=== PATIENT | female | born 1950 | race Two or more races ===

== ENCOUNTER 2021-09-05 15:21 | Emergency (ER) | payer OTHER, MEDICARE ==
[~2021-09-05] VITALS: Ht 152.4 cm; Wt 65.8 kg
[2021-09-05 15:57] VITALS: BP 154/60
[2021-09-05 16:05] LABS: Basophils # (auto) 0.1 10 ^3/uL (0-0.2); Basophils % (auto) 1.1 % (0.0-2.0); Eosinophils # (auto) 0.3 10 ^3/uL (0-0.8); Eosinophils % (auto) 5.6 % (0.0-7.0); Hematocrit 36.8 % (36.0-46.0); Hemoglobin 12.7 g/dL (12.2-16.2); Lymphocytes # (auto) 2.3 10 ^3/uL (0.4-5.4); Lymphocytes % (auto) 40.3 % (10.0-50.0); Mean Corpuscular Hemoglobin 32.5 pg (28.0-32.0); Mean Corpuscular Hgb Conc. 34.5 g/dL (32.0-36.0); Mean Corpuscular Volume 94.2 fL (80.0-100.0); Monocytes # (auto) 0.4 10 ^3/uL (0-1.3); Monocytes % (auto) 7.2 % (0.0-12.0); Neutrophils # (auto) 2.6 10 ^3/uL (1.6-8.6); Neutrophils % (auto) 45.8 % (37.0-80.0); Nucleated Red Blood Cells % 0.1 %; Red Cell Distribution Width 12.9 % (11.8-14.3); White Blood Cell 5.6 10^3/uL (4.4-10.8)
[2021-09-05 16:21] LABS: Albumin 3.4 g/dL (3.4-5.0); Calcium 9.4 mg/dL (8.5-10.1); Magnesium 3.3 mg/dL (1.6-2.6); Potassium 4.7 mmol/L (3.5-5.1)
[2021-09-05 16:28] LABS: BUN/Creatinine Ratio 18.6; Bilirubin, Total 0.2 mg/dL (0.2-1.0); Total Protein 7.5 g/dL (6.4-8.2)
[2021-09-05 16:33] LABS: Urine Bacteria NONE SEEN /hpf (None Seen); Urine Blood Negative /uL (Negative); Urine Specific Gravity 1.012 (1.001-1.035); Urine WBC 2 /hpf (0 - 5)
== END 2021-09-05 17:01 | disposition home or self-care (01) ==
LOC: ER 15:23
DX: I10 Essential (primary) hypertension (principal); E03.9 Hypothyroidism, unspecified
CPT/HCPCS: 36415; 80053; 81001; 83735; 84443; 84484; 85025; 93005

== ENCOUNTER 2023-04-04 12:28 | Emergency (ER) | payer OTHER ==
[~2023-04-04] VITALS: Ht 154.9 cm; Wt 63.9 kg
[2023-04-04 15:03] VITALS: BP 137/82; PULSE 57; RESP 16; TEMP 97.8; O2SAT 98
== END 2023-04-04 15:31 | disposition home or self-care (01) ==
LOC: ER 12:28
DX: S52.615A Nondisplaced fracture of left ulna styloid process, initial encounter for closed fracture (principal); S52.572A Other intraarticular fracture of lower end of left radius, initial encounter for closed fracture; W18.09XA Striking against other object with subsequent fall, initial encounter; Y93.89 Activity, other specified; Y92.096 Garden or yard of other non-institutional residence as the place of occurrence of the external cause; Y99.8 Other external cause status
CPT/HCPCS: 29125; 73110

== ENCOUNTER 2023-04-07 22:30 | Emergency (ER) | payer OTHER ==
[~2023-04-07] VITALS: Ht 154.9 cm; Wt 65.3 kg
[2023-04-07 23:20] LABS: Urine WBC None Seen /hpf (0 - 5)
[2023-04-07 23:42] LABS: Urine Bacteria NONE SEEN /hpf (None Seen); Urine Blood 1+ /uL (Negative); Urine Clarity Clear (Clear); Urine Color Colorless (Yellow); Urine Protein, UAD Negative (Negative); Urine Specific Gravity 1.004 (1.001-1.035); Urine Urobilinogen Normal (Negative)
[2023-04-07 23:58] LABS: Basophils # (auto) 0 10 ^3/uL (0-0.2); Basophils % (auto) 0.8 % (0.0-2.0); Eosinophils # (auto) 0.3 10 ^3/uL (0-0.8); Eosinophils % (auto) 5.3 % (0.0-7.0); Hematocrit 36.7 % (36.0-46.0); Hemoglobin 12.4 g/dL (12.2-16.2); Lymphocytes # (auto) 1.6 10 ^3/uL (0.4-5.4); Lymphocytes % (auto) 29.5 % (10.0-50.0); Mean Corpuscular Hemoglobin 33.3 pg (28.0-32.0); Mean Corpuscular Hgb Conc. 33.7 g/dL (32.0-36.0); Mean Corpuscular Volume 99.1 fL (80.0-100.0); Monocytes # (auto) 0.5 10 ^3/uL (0-1.3); Monocytes % (auto) 8.5 % (0.0-12.0); Neutrophils % (auto) 55.9 % (37.0-80.0); Nucleated Red Blood Cells % 0.1 %; Red Blood Cells 3.71 10^6/uL (4.0-5.20); Red Cell Distribution Width 13.8 % (11.8-14.3); White Blood Cell 5.4 10^3/uL (4.4-10.8)
[2023-04-08 00:23] LABS: Alanine Aminotransferase 23 U/L (7-40); Albumin 4.1 g/dL (3.2-4.8); Alkaline Phosphatase 224 U/L (46-116); Anion Gap 5.3 (5-15); Aspartate Aminotransferase 50 U/L (13-40); BUN/Creatinine Ratio 11.4 (10.0-20.0); Blood Urea Nitrogen 12 mg/dL (9-23); Calcium 9.3 mg/dL (8.7-10.4); Carbon Dioxide 23.7 mmol/L (20-30); Chloride 106 mmol/L (98-107); Glucose 111 mg/dL (74-106); Lipase 48 U/L (12-53); Potassium 4.2 mmol/L (3.5-5.1); Sodium 135 mmol/L (136-145)
[2023-04-08 00:24] LABS: Bilirubin, Total 0.7 mg/dL (0.2-1.0); Total Protein 7.3 g/dL (5.7-8.2)
[2023-04-08] MEDS ORDERED: MORPHINE SULFATE 4 MG/ML SYR/VIAL IM ONE (04:30)
[2023-04-08] MEDS ORDERED: ONDANSETRON ODT 4 MG TAB PO ONE (04:30)
[2023-04-08] MEDS ORDERED: KETOROLAC TROMETH 30 MG/ML 1ML VIAL IV ONE (05:30)
[2023-04-08] MEDS ORDERED: IBUP1TAB5 PO (06:02)
[2023-04-08 06:10] VITALS: BP 153/71; PULSE 57; RESP 16; O2SAT 99
== END 2023-04-08 06:30 | disposition home or self-care (01) ==
LOC: ER 22:32
DX: S52.92XA Unspecified fracture of left forearm, initial encounter for closed fracture (principal); M54.50 Low back pain, unspecified; R10.84 Generalized abdominal pain; W18.39XA Other fall on same level, initial encounter; Y93.89 Activity, other specified; Y92.096 Garden or yard of other non-institutional residence as the place of occurrence of the external cause; Y99.8 Other external cause status
CPT/HCPCS: 36415; 74176; 80053; 81001; 83605; 83690; 84484; 85025; 96374; 99285; J1885

== ENCOUNTER 2025-03-13 09:49 | Inpatient (IN) | payer OTHER ==
[~2025-03-13] VITALS: Ht 154.9 cm; Wt 67.8 kg
[~2025-03-13 09:49] MED LIST: IBUP1TAB5 PO
--- NOTE | 2025-03-13 10:46 | DVH ---
CHEST RADIOGRAPH Indication: chest pain Technique: Single frontal view of the chest was obtained COMPARISON: None FINDINGS: Lines and Tubes: None Lungs: Clear Pleura: No effusion. No pneumothorax. Cardiomediastinal contours: Unremarkable Bones: Unremarkable IMPRESSION: No acute disease.
[2025-03-13 10:56] LABS: Urine Protein, UAD Negative (Negative)
[2025-03-13 11:01] LABS: Alanine Aminotransferase 27 U/L (7-40); Albumin 4.0 g/dL (3.2-4.8); Anion Gap 8 (5-15); BUN/Creatinine Ratio 15.6 (10.0-20.0); Blood Urea Nitrogen 14 mg/dL (9-23); Calcium 9.5 mg/dL (8.7-10.4); Carbon Dioxide 22 mmol/L (20-31); Glucose 100 mg/dL (74-106); Lipase 45 U/L (12-53); Potassium 4.4 mmol/L (3.5-5.1); Sodium 140 mmol/L (136-145); Total Protein 7.2 g/dL (5.7-8.2)
[2025-03-13 11:02] LABS: Alkaline Phosphatase 149 U/L (46-116); Bilirubin, Total 0.7 mg/dL (0.2-1.0); Chloride 110 mmol/L (98-107)
[2025-03-13 11:58] LABS: Hematocrit 38.6 % (36.0-46.0); Hemoglobin 12.9 g/dL (12.2-16.2); Mean Corpuscular Hemoglobin 32.3 pg (28.0-32.0); Mean Corpuscular Volume 96.5 fL (80.0-100.0); Nucleated Red Blood Cells % 0.1 %
--- NOTE | 2025-03-13 12:37 | ED.PDOC ---
History of Present Illness HPI Comments 74-year-old female with PMHx HTN presents with a chief complaint of chest pain and SOB. Patient states that her pain is localized to her left chest, nonradiating, nonexertional, and has no alleviating factors. Patient also reports that she is SOB. Patient mentions that she took Tylenol, but that it did not alleviate her pain. Chief Complaint: Shortness of Breath Time Seen by MD: 10:31 Primary Care Provider: CAIT Leger Notes: Medications, Allergies Allergies: Coded Allergies: NO KNOWN ALLERGIES (Unverified , 10/16/12) Home Meds Active Scripts Ibuprofen Micronized (Ibuprofen) 600 Mg Tab, 600 MG PO TID PRN for 10 Days, #30 TAB Prov:MELOYOUNG Stanley DO 04/08/23 Information Source: Patient Mode of Arrival: Ambulatory Severity: Moderate Timing: Days Duration: Since onset Prehospital treatment: None Past Medical History PAST MEDICAL HISTORY: Thyroid Surgical History: CORN HUSK BALER History: No Pertinent CORN HUSK BALER History Family History Family History: Reviewed,noncontributory to illness Social History Smoker: Non-Smoker Alcohol: Denies ETOH Use Drugs: Denies Drug Use Lives In: Home Constitutional: denies: chills, diaphoresis, fatigue, fever, malaise, sweats, weakness, others EENTM: denies: blurred vision, double vision, ear bleeding, ear discharge, ear drainage, ear pain, ear ringing, eye pain, eye redness, hearing loss, mouth pain, mouth swelling, nasal discharge, nose bleeding, nose congestion, nose pain, photophobia, tearing, throat pain, throat swelling, voice changes, others Respiratory: reports: shortness of breath; denies: cough, hemoptysis, orthopnea, SOB at rest, SOB with excertion, stridor, wheezing, others Cardiovascular: reports: chest pain; denies: dizzy spells, diaphoresis, Dyspnea on exertion, edema, irregular heart beat, left arm pain, lightheadedness, palpitations, PND, syncope, others Gastrointestinal: denies: abdomen distended, abdominal pain, blood streaked bowels, constipated, diarrhea, dysphagia, difficulty swallowing, hematemesis, melena, nausea, poor appetite, poor fluid intake, rectal bleeding, rectal pain, vomiting, others Genitourinary: denies: abnormal vagina bleeding, burning, dyspareunia, dysuria, flank pain, frequency, hematuria, incontinence, pain, , vagina discharge, urgency, others Neurological: denies: dizziness, fainting, headache, left sided numbness, left sided weakness, numbness, paresthesia, pre-existing deficit, right sided numbness, right sided weakness, seizure, speech problems, tingling, tremors, weakness, others Musculoskeletal: denies: back pain, gout, joint pain, joint swelling, muscle pain, muscle stiffness, neck pain, others Integumetry: denies: bruises, change in color, change in hair/nails, dryness, laceration, lesions, lumps, rash, wounds, others Allergic/Immunocompromised: denies: Difficulty Healing, Frequent Infections, Hives, Itching, others Hematologic/Lymphatic: denies: anemia, blood clots, easy bleeding, easy bruising, swollen glands, others Endocrine: denies: excessive hunger, excessive sweating, excessive thirst, excessive urination, flushing, intolerance to cold, intolerance to heat, unexp lained weight gain, unexplained weight loss, others Psychiatric: denies: anxiety, bipolar disorder, depression, hopeless, panic disorder, schizophrenia, sleepless, suicidal, others All Other Systems: Reviewed and Negative Physical Exam General Appearance: No Apparent Distress, Normal HEENT: Normal ENT Inspection, Pharynx Normal, TMs Normal Neck: Full Range of Motion, Non-Tender, Normal, Normal Inspection Respiratory: Chest Non-Tender, Lungs Clear, No Accessory Muscle Use, No Respiratory Distress, Normal Breath Sounds Cardiovascular: No Edema, No JVD, No Murmur, No Gallop, Normal Peripheral Pulse s, Regular Rate/Rhythm Breast Exam: Deferred Gastrointestinal: No Organomegaly, Non Tender, No Pulsatile Mass, Normal Bowel Sounds, Soft Genitalia: Deferred Pelvic: Deferred Rectal: Deferred Extremities: No calf tenderness, Normal capillary refill, Normal inspection, Normal range of motion, Non-tender, No pedal edema Musculoskeletal : Apperance: Normal Neurologic: Alert, social economist II-XII nml as Tested, No Motor Deficits, Normal Affect, Normal Mood, No Sensory Deficits Cerebellar Function: Normal Reflexes: Normal Skin: Dry, Normal Color, Warm Lymphatic: No Adenopathy Was a procedure done? Was a procedure done?: No Differential Dx Considerations may include: ACS, CVA, viral syndrome, pneumonia X-Ray, Labs, Meds, VS Vital Signs Date Time Temp Pulse Resp B/P (MAP) Pulse Ox O2 Delivery O2 Flow Rate FiO2 03/13/25 10:06 58 03/13/25 09:56 97.9 61 17 169/82 99 97.9 Lab Test 03/13/25 11:31 03/13/25 10:30 03/13/25 10:16 Range/Units White Blood Count 4.1 L 4.4-10.8 10^3/uL Red Blood Count 4.00 4.0-5.20 10^6/uL Hemoglobin 12.9 12.2-16.2 g/dL Hematocrit 38.6 36.0-46.0 % Mean Corpuscular Volume 96.5 80.0-100.0 fL Mean Corpuscular Hemoglobin 32.3 H 28.0-32.0 pg Mean Corpuscular Hemoglobin Concent 33.4 32.0-36.0 g/dL Red Cell Distribution Width 13.2 11.8-14.3 % Platelet Count 197 140-450 10^3/uL Mean Platelet Volume 8.2 6.9-10.8 fL Neutrophils (%) (Auto) 46.3 37.0-80.0 % Lymphocytes (%) (Auto) 40.9 10.0-50.0 % Monocytes (%) (Auto) 8.5 0.0-12.0 % Eosinophils (%) (Auto) 3.6 0.0-7.0 % Basophils (%) (Auto) 0.7 0.0-2.0 % Neutrophils # (Auto) 1.9 1.6-8.6 10 ^3/uL Lymphocytes # (Auto) 1.7 0.4-5.4 10 ^3/uL Monocytes # (Auto) 0.3 0-1.3 10 ^3/uL Eosinophils # (Auto) 0.1 0-0.8 10 ^3/uL Basophils # (Auto) 0 0-0.2 10 ^3/uL Nucleated Red Blood Cells 0.1 % Troponin I High Sensitivity 3 L < 3 L </=34 ng/L Sodium Level 140 136-145 mmol/L Potassium Level 4.4 3.5-5.1 mmol/L Chloride Level 110 H 98-107 mmol/L Carbon Dioxide Level 22 20-31 mmol/L Anion Gap 8 5-15 Blood Urea Nitrogen 14 9-23 mg/dL Creatinine 0.90 0.550-1.02 mg/dL Glomerular Filtration Rate Calc 68 >90 mL/min BUN/Creatinine Ratio 15.6 10.0-20.0 Serum Glucose 100 74-106 mg/dL Calcium Level 9.5 8.7-10.4 mg/dL Total Bilirubin 0.7 0.2-1.0 mg/dL Aspartate Amino Transferase (AST) 57 H 13-40 U/L Alanine Aminotransferase (ALT) 27 7-40 U/L Alkaline Phosphatase 149 H 46-116 U/L Total Protein 7.2 5.7-8.2 g/dL Albumin 4.0 3.2-4.8 g/dL Lipase 45 12-53 U/L Urine Color Light-yellow Yellow Urine Clarity Clear Clear Urine pH 7.0 5.0-9.0 Urine Specific [place] 1.011 1.001-1.035 Urine Protein Negative Negative Urine Ketones Negative Negative Urine Blood Negative Negative /uL Urine Nitrite Negative Negative Urine Bilirubin Negative Negative Urine Urobilinogen Normal Negative mg/dL Urine Leukocyte Esterase Negative Negative /uL Urine RBC 1 0 - 4 /hpf Urine Microscopic WBC < 1 0-5 /HPF Urine Squamous Epithelial Cells Few <5 /hpf Urine Bacteria None seen None Seen /hpf Urine Glucose Normal Normal mg/dL Time of 1ST Reevaluation: 11:01 Reevaluation 1ST: Unchanged Patient Education/Counseling: Diagnosis, Treatment Family Education/Counseling: No Family Present SEPSIS Sepsis Screen Date sepsis recognized/suspect: Mar 13, 2025 Time Sepsis recognized/suspect: 954 Recent Procedure: No On Antibiotic Therapy: No Respiratory Rate >20: No Heart Rate >90: No Temp<36 C (96.8 F) or >38.3 C: No SBP <90 or MAP <65 mmHG: No New Acute Mental Status Change: No Is the patient on CPAP, BIPAP,: No Physician Orders Electrocardigram (03/13/25 10:02) Electrocardigram (03/13/25 11:02) Chest Portable (03/13/25 10:16) Admit (03/13/25 18:31) Code Status (03/13/25 18:31) Vital Signs .PER UNIT PROTOCOL (03/13/25 18:31) Review Orders With Adm.Md (03/13/25 18:31) Encourage Activity As Tolerate (03/13/25 18:31) Sodium Chloride Lock (Saline Lock Ns) (03/13/25 22:00) Docusate Sodium Capsule (Colace Capsule) (03/13/25 18:45) Acetaminophen Tablet (Tylenol Tablet) (03/13/25 18:45) Notify Md Of Changes From Base (03/13/25 18:31) Advance Directive (03/13/25 18:31) Patient Condition (03/13/25:) Allergies (03/13/25 18:) Hydrocodone-Acet 5/325mg Tab ([place] 32 (03/13/25 18:45) Ondansetron Hcl (Zofran) (03/13/25 18:45) Enoxaparin Sodium (Lovenox) (03/14/25 10:00) Nitroglycerin Sublingual (Ntrostat Subli (03/13/25 18:45) Morphine Sulfate Injection (03/13/25 18:45) Stat Ekg For Chest Pain (03/13/25:31) Notify Md Of Changes From Base (03/13/25 18:31) Supervisor Motor Vehicle Assembly For 24 Hours (03/13/25 18:31) Emergency Dysrhythmia Protocol (03/13/25:31) Rhythm Strips Once Every Shift (03/13/25:31) Oxygen By Nasal Cannula (03/13/25:31) Ketorolac Injection (Toradol Injection) (03/13/25 18:45) Echo 2d Mode Cardiac Dop (03/13/25:31) Cardiac Diet-2gna,Lofat,Lochol (03/14/25 Breakfast) Complete Blood Count (03/14/25 05:00) Complete Blood Count (03/15/25 05:00) Complete Blood Count (03/16/25 05:00) Complete Blood Count (03/17/25 05:00) Complete Blood Count (03/18/25 05:00) Comprehensive Metabolic Panel (03/14/25 05:00) Comprehensive Metabolic Panel (03/15/25 05:00) Comprehensive Metabolic Panel (03/16/25 05:00) Comprehensive Metabolic Panel (03/17/25 05:00) Comprehensive Metabolic Panel (03/18/25 05:00) Vital Signs Date Time Temp Pulse Resp B/P (MAP) Pulse Ox O2 Delivery O2 Flow Rate FiO2 03/13/25 10:06 58 03/13/25 09:56 97.9 61 17 169/82 99 97.9 Laboratory Tests Test 03/13/25 11:31 White Blood Count 4.1 10^3/uL (4.4-10.8) L Departure 1 Departure Time of Disposition: 18:45 (Patient presented with chest pain that was concerning for possible STEMI, ACS, PE, Pneumonia, Muscle Strain, COPD, Dissection. Data: 1. I ordered and reviewed the result of at least 3 labs including a CBC, BMP, and Troponin. 2. I independently interpreted the following tests: EKG which shows has a arrhythmia and Chest X-ray which shows chest.Risk:This patient has a high risk of morbidity due to further diagnostic testing or treatment and may suffer from an acute cardiac or respiratory disorder. Workup reveals concern for ACS and patient should be admitted for further workup and possible expert consultation. ) Impression: Primary Impression: Chest pain Qualified Codes: R07.9 - Chest pain, unspecified Disposition: ADMITTED INPATIENT Admit to: Med Surg Condition: Serious Critical Care Note Critical Care Time?: Yes Critical care comment: Acute chest pain Authorized and Performed by: Velia Glez MD Total critical care time: Approximately 38 minutes Due to a high probability of clinically significant, life threatening deterioration, the patient required my highest level of preparedness to intervene emergently and I personally spent this critical care time directly and personally managing the patient. This critical care time included obtaining a history; examining the patient; pulse oximetry; ordering and review of studies; arranging urgent treatment with development of a management plan; evaluation of patient's response to treatment; frequent reassessment; and, discussions with other providers. This critical care time was performed to assess and manage the high probability of imminent, life-threatening deterioration that could result in multi-organ failure. It was exclusive of separately billable procedures and treating other patients and teaching time. Please see my other sections and the rest of the note for further information on patient assessment and treatment. Stability Stability form required: No Heart Score Heart Score: Heart Score Response (Comments) Value History N/A 0 EKG N/A 0 Age N/A 0 Risk Factors N/A 0 Troponin N/A 0 Total 0 I personally scribed for VELIA GLEZ MD ([email or web address]) on 03/13/25 at 12:37. Electronically submitted by Galileo Hinkle ([email or web address]). VELIA GLEZ MD Mar 13, 2025 12:37
--- NOTE | 2025-03-13 18:38 | DVHHP2 ---
Admitting Diagnosis: Chest pain History of Present Illness 74-year-old female with PMHx HTN presents with a chief complaint of chest pain and SOB. Patient states that her pain is localized to her left chest, nonra diating, nonexertional, and has no alleviating factors. Patient also reports that she is SOB. Patient mentions that she took Tylenol, but that it did not alleviate her pain. PAST MEDICAL HISTORY: Thyroid Surgical History: EDITING COMPUTER PUBLISHER History: No Pertinent EDITING COMPUTER PUBLISHER History Family History Family History: Reviewed,noncontributory to illness Social History Smoker: Non-Smoker Alcohol: Denies ETOH Use Drugs: Denies Drug Use Lives In: Home Allergies: Coded Allergies: NO KNOWN ALLERGIES (Unverified , 10/16/12) Home Meds Active Scripts Ibuprofen Micronized (Ibuprofen) 600 Mg Tab, 600 MG PO TID PRN for 10 Days, #30 TAB Prov:YOUNG MELO DO 04/08/23 Current Medications Current Medications Medications (Trade) Dose Ordered Sig/Kandi Route PRN Reason Start Time Stop Time Status Last Admin Sodium Chloride (Saline Lock Ns) 10 ml Q8HR IV 03/13/25 22:00 UNV Docusate Sodium (Colace Capsule) 100 mg BIDPRN PRN PO FOR CONSTIPATION 03/13/25 18:45 UNV Acetaminophen (Tylenol Tablet) 650 mg Q6HP PRN PO PAIN SCALE 1-3 OR TEMP>100.4 03/13/25 18:45 UNV Acetaminophen/ Hydrocodone Bitart ([place] 5/325MG Tab) 1 tab Q4HP PRN PO MODERATE PAIN (4-6 PAIN SCALE) 03/13/25 18:45 UNV Ondansetron HCl (Zofran) 4 mg Q4HP PRN IV NAUSEA / VOMITING 03/13/25 18:45 UNV Enoxaparin Sodium (Lovenox) 40 mg DAILY SC 03/14/25 10:00 UNV Nitroglycerin (Ntrostat Sublingual) 0.4 mg Q5MINP PRN SL FOR CHEST PAIN 03/13/25 18:45 UNV Morphine Sulfate 2 mg Q30M PRN IV FOR CHEST PAIN 03/13/25 18:45 UNV Ketorolac Tromethamine (Toradol Injection) 15 mg Q8H PRN IV moderate pain 03/13/25 18:45 03/18/25 18:44 UNV Vital Signs Vital Signs Date Time Temp Pulse Resp B/P (MAP) Pulse Ox O2 Delivery O2 Flow Rate FiO2 03/13/25 10:06 58 03/13/25 09:56 97.9 17 169/82 99 97.9 Physical Exam Generally-74 years old woman, well nourished well developed. No apparent dist ress HEENT-atraumatic, normocephalic Heart-regular rate and rhythm Lungs clear to auscultate bilaterally Abdomen soft nontender nondistended Musculoskeletal-no edema No cyanosis Neuro-AO x3, no focal deficits SEPSIS Sepsis Screen Date sepsis recognized/suspect: Mar 13, 2025 Time Sepsis recognized/suspect: 954 Recent Procedure: No On Antibiotic Therapy: No Respiratory Rate >20: No Heart Rate >90: No Temp<36 C (96.8 F) or >38.3 C: No SBP <90 or MAP <65 mmHG: No New Acute Mental Status Change: No Is the patient on CPAP, BIPAP,: No Physician Orders Electrocardigram (03/13/25 10:02) Electrocardigram (03/13/25 11:02) Chest Portable (03/13/25 10:16) Admit (03/13/25 18:31) Code Status (03/13/25 18:31) Vital Signs .PER UNIT PROTOCOL (03/13/25 18:31) Review Orders With Adm.Md (03/13/25 18:31) Encourage Activity As Tolerate (03/13/25 18:31) Sodium Chloride Lock (Saline Lock Ns) (03/13/25 22:00) Docusate Sodium Capsule (Colace Capsule) (03/13/25 18:45) Acetaminophen Tablet (Tylenol Tablet) (03/13/25 18:45) Notify Md Of Changes From Base (03/13/25 18:31) Advance Directive (03/13/25 18:31) Patient Condition (03/13/25 18:31) Allergies (03/13/25 18:31) Hydrocodone-Acet 5/325mg Tab ([place] 5/32 (03/13/25 18:45) Ondansetron Hcl (Zofran) (03/13/25 18:45) Enoxaparin Sodium (Lovenox) (03/14/25 10:00) Nitroglycerin Sublingual (Ntrostat Subli (03/13/25 18:45) Morphine Sulfate Injection (03/13/25 18:45) Stat Ekg For Chest Pain (03/13/25 18:31) Notify Of Changes From Base (03/13/25 18:31) Accounts Specialist For 24 Hours (03/13/25 18:31) Emergency Dysrhythmia Protocol (03/13/25 18:31) Rhythm Strips Once Every Shift (03/13/25 18:31) Oxygen By Nasal Cannula (03/13/25 18:31) Ketorolac Injection (Toradol Injection) (03/13/25 18:45) Echo 2d Mode Cardiac Dop (03/13/25 18:31) Cardiac Diet-2gna,Lofat,Lochol (03/14/25 Breakfast) Vital Signs Date Time Temp Pulse Resp B/P (MAP) Pulse Ox O2 Delivery O2 Flow Rate FiO2 03/13/25 10:06 58 03/13/25 09:56 97.9 61 17 169/82 99 97.9 Laboratory Tests Test 03/13/25 11:31 White Blood Count 4.1 10^3/uL (4.4-10.8) L Results Labs Test 03/13/25 11:31 03/13/25 10:30 03/13/25 10:16 Range/Units White Blood Count 4.1 L 4.4-10.8 10^3/uL Red Blood Count 4.00 4.0-5.20 10^6/uL Hemoglobin 12.9 12.2-16.2 g/dL Hematocrit 38.6 36.0-46.0 % Mean Corpuscular Volume 96.5 80.0-100.0 fL Mean Corpuscular Hemoglobin 32.3 H 28.0-32.0 pg Mean Corpuscular Hemoglobin Concent 33.4 32.0-36.0 g/dL Red Cell Distribution Width 13.2 11.8-14.3 % Platelet Count 197 140-450 10^3/uL Mean Platelet Volume 8.2 6.9-10.8 fL Neutrophils (%) (Auto) 46.3 37.0-80.0 % Lymphocytes (%) (Auto) 40.9 10.0-50.0 % Monocytes (%) (Auto) 8.5 0.0-12.0 % Eosinophils (%) (Auto) 3.6 0.0-7.0 % Basophils (%) (Auto) 0.7 0.0-2.0 % Neutrophils # (Auto) 1.9 1.6-8.6 10 ^3/uL Lymphocytes # (Auto) 1.7 0.4-5.4 10 ^3/uL Monocytes # (Auto) 0.3 0-1.3 10 ^3/uL Eosinophils # (Auto) 0.1 0-0.8 10 ^3/uL Basophils # (Auto) 0 0-0.2 10 ^3/uL Nucleated Red Blood Cells 0.1 % Troponin I High Sensitivity 3 L </=34 ng/L Sodium Level 140 136-145 mmol/L Potassium Level 4.4 3.5-5.1 mmol/L Chloride Level 110 H 98-107 mmol/L Carbon Dioxide Level 22 20-31 mmol/L Anion Gap 8 5-15 Blood Urea Nitrogen 14 9-23 mg/dL Creatinine 0.90 0.550-1.02 mg/dL Glomerular Filtration Rate Calc 68 >90 mL/min BUN/Creatinine Ratio 15.6 10.0-20.0 Serum Glucose 100 74-106 mg/dL Calcium Level 9.5 8.7-10.4 mg/dL Total Bilirubin 0.7 0.2-1.0 mg/dL Aspartate Amino Transferase (AST) 57 H 13-40 U/L Alanine Aminotransferase (ALT) 27 7-40 U/L Alkaline Phosphatase 149 H 46-116 U/L Total Protein 7.2 5.7-8.2 g/dL Albumin 4.0 3.2-4.8 g/dL Lipase 45 12-53 U/L Urine Color Light-yellow Yellow Urine Clarity Clear Clear Urine pH 7.0 5.0-9.0 Urine Specific [place] 1.011 1.001-1.035 Urine Protein Negative Negative Urine Ketones Negative Negative Urine Blood Negative Negative /uL Urine Nitrite Negative Negative Urine Bilirubin Negative Negative Urine Urobilinogen Normal Negative mg/dL Urine Leukocyte Esterase Negative Negative /uL Urine RBC 1 0 - 4 /hpf Urine Microscopic WBC < 1 0-5 /HPF Urine Squamous Epithelial Cells Few <5 /hpf Urine Bacteria None seen None Seen /hpf Urine Glucose Normal Normal mg/dL Primary Diagnosis Chest pain rule out ACS Plan Chest pain intermittent, left side rib region worsened when cough To rule out p.r.n. Tylenol and morphine for pain control Check echo of the heart to rule out abnormal regional wall motion Troponin negative Diet Full code Lovenox for DVT prophylaxis No GI prophylaxis needed Plan discussed with: Patient Date of Service: Mar 13, 2025 Billing Provider: ANJEL AGUILAR MD Common Visit Codes: [id number] INP/OBS CARE (MOD) ANJEL AGUILAR MD Mar 13, 2025 18:38
[2025-03-13] MEDS ORDERED: NITROGLYCERIN 0.4 MG SL TAB SL PRN (18:45)
[2025-03-13] MEDS ORDERED: HYDROcodone-ACET 5/325MG TAB PO PRN (18:45)
[2025-03-13] MEDS ORDERED: DOCUSATE SOD 100 MG CAP PO PRN (18:45)
[2025-03-13] MEDS: MORPHINE SULFATE INJ 2 MG/ml SYRG IV PRN (19:33)
[2025-03-13] MEDS: ONDANSETRON HCL 4 MG/2 ML VIAL IV PRN (19:33)
[2025-03-13 20:52] VITALS: PULSE 58; RESP 14; O2SAT 96
[2025-03-13] MEDS: SODIUM CHLOR 0.9% PF (SALINE LOCK) 10ML VIAL/SYR IV SCH (22:13)
[2025-03-13] MEDS: hydrALAZINE HCL 20 MG/ML VL IV PRN (22:20)
[2025-03-13 23:12] VITALS: BP 142/75; PULSE 56; RESP 19; TEMP 97; O2SAT 98
[2025-03-13] MEDS: KETOROLAC TROMETH 30 MG/ML 1ML VIAL IV PRN (23:37)
[2025-03-14] VITALS (8 sets, daily range): BP systolic 115–152; BP diastolic 70–88; PULSE 52–63; RESP 16–98; TEMP 96.2–98.7; O2SAT 96–99
[2025-03-14] MEDS: ACETAMINOPHEN 325 MG TAB PO PRN (04:18)
[2025-03-14 07:44] LABS: Hematocrit 36.0 % (36.0-46.0); Hemoglobin 12.2 g/dL (12.2-16.2); Mean Corpuscular Hemoglobin 32.4 pg (28.0-32.0); Mean Corpuscular Volume 96.1 fL (80.0-100.0); Nucleated Red Blood Cells % 0.2 %
[2025-03-14 08:01] LABS: Alanine Aminotransferase 23 U/L (7-40); Albumin 3.6 g/dL (3.2-4.8); Anion Gap 10 (5-15); BUN/Creatinine Ratio 19.4 (10.0-20.0); Bilirubin, Total 0.6 mg/dL (0.2-1.0); Blood Urea Nitrogen 20 mg/dL (9-23); Calcium 9.8 mg/dL (8.7-10.4); Carbon Dioxide 22 mmol/L (20-31); Glucose 91 mg/dL (74-106); Potassium 4.4 mmol/L (3.5-5.1); Sodium 143 mmol/L (136-145); Total Protein 6.3 g/dL (5.7-8.2)
[2025-03-14 08:05] LABS: Alkaline Phosphatase 127 U/L (46-116); Chloride 111 mmol/L (98-107)
[2025-03-14] MEDS: ENOXAPARIN SOD 40 MG/0.4 ML SYRINGE SC SCH (09:43)
--- NOTE | 2025-03-14 11:27 | DVHPN2 ---
Subjective Continues to complain of chest pain Reviewed: Care Plan, H&P, Labs, Medications, Previous Orders, Radiology Changes from previous H/P or p: No Changes Objective Vitals Vital Signs Date Time Temp Pulse Resp B/P (MAP) Pulse Ox O2 Delivery O2 Flow Rate FiO2 03/14/25 08:30 97.5 52 16 144/78 (100) 99 97.5 03/14/25 08:11 Room Air* 0 21 Intake/Output Intake and Output 03/14/25 07:00 Intake Total 50 ml Balance 50 ml Intake Oral 50 ml # Voids 1 General Appearance: Alert, Oriented X3, Cooperative, No acute distress HEENT: Atraumatic Lungs: Clear to auscultation, Normal air movement Cardiovascular: Regular rate, Normal S1, Normal S2, No murmurs Neuro: Normal speech, Cranial nerves 3-12 NL Psych/Mental Status: Mental status NL, Mood NL Medications Current Medications Medications Dose Ordered Sig/Kandi Route Start Time Stop Time Status Last Admin Dose Admin Sodium Chloride 10 ml Q8HR IV 03/13/25 22:00 03/14/25 08:11 10 ML Docusate Sodium 100 mg BIDPRN PRN PO 03/13/25 18:45 Acetaminophen 650 mg Q6HP PRN PO 03/13/25 18:45 03/14/25 04:18 650 MG Acetaminophen/ Hydrocodone Bitart 1 tab Q4HP PRN PO 03/13/25 18:45 Hold Ondansetron HCl 4 mg Q4HP PRN IV 03/13/25 18:45 Enoxaparin Sodium 40 mg DAILY SC 03/14/25 10:00 03/14/25 09:43 40 MG Nitroglycerin 0.4 mg Q5MINP PRN SL 03/13/25 18:45 Morphine Sulfate 2 mg Q30M PRN IV 03/13/25 18:45 Ketorolac Tromethamine 15 mg Q8H PRN IV 03/13/25 18:45 03/18/25 18:44 03/13/25 23:37 15 MG Hydralazine HCl 10 mg Q6HP PRN IV 03/13/25 22:00 03/13/25 22:20 10 MG Laboratory Results Laboratory Tests 03/14/25 06:30 Chemistry Test 03/14/25 06:30 Albumin 3.6 g/dL (3.2-4.8) Calcium Level 9.8 mg/dL (8.7-10.4) Total Protein 6.3 g/dL (5.7-8.2) LFT Test 03/14/25 06:30 Alanine Aminotransferase (ALT) 23 U/L (7-40) Alkaline Phosphatase 127 U/L (46-116) H Aspartate Amino Transferase (AST) 49 U/L (13-40) H Total Bilirubin 0.6 mg/dL (0.2-1.0) Urinalysis Test 03/13/25 10:16 Urine Color Light-yellow (Yellow) Urine Clarity Clear (Clear) Urine pH 7.0 (5.0-9.0) Urine Specific [place] 1.011 (1.001-1.035) Urine Protein Negative (Negative) Urine Ketones Negative (Negative) Urine Blood Negative /uL (Negative) Urine Nitrite Negative (Negative) Urine Bilirubin Negative (Negative) Urine Urobilinogen Normal mg/dL (Negative) Urine Leukocyte Esterase Negative /uL (Negative) Urine RBC 1 /hpf (0 - 4) Urine Microscopic WBC < 1 /HPF (0-5) Urine Squamous Epithelial Cells Few /hpf (<5) Urine Bacteria None seen /hpf (None Seen) Urine Glucose Normal mg/dL (Normal) Labs and/or images reviewed: Labs reviewed by me, Image(s) reviewed by me Assessment/Plan Assessment/Plan A 74-year-old female patient; with past medical history of autoimmune hepatitis and hypothyroidism; who presented to emergency department with chest pain. # Acute chest pain; unclear etiology; negative troponin; no ischemic changes on EKG # Autoimmune hepatitis with elevated LFTs # Hypertensive heart disease # Hypothyroidism # Overweight Counseled the patient on the importance of adopting healthy lifestyle with diet and exercise in order to lose weight Continue antihypertensive medication/s and adjust according to blood pressure readings Avoid hepatotoxic agents; will hold azathioprine as inpatient Reviewed lab work and chest x-ray Continue home levothyroxine Consulted cardiology Continue monitoring Goals of care discussed with the patient for 20 minutes; full code Late Entry. This medical document was created using an electronic medical record system with computerized dictation system. Although this document has been carefully reviewed, there might still be some phonetic and typographical errors. These areas are purely typographical due to imperfections of the software programs, and do not reflect any compromise in the patient's medical care. Plan discussed with: Patient, Son, Other (Nurse) Date of Service: Mar 14, 2025 Billing Provider: KASI BARRIGA MD Common Visit Codes: [id number] INP/OBS CARE(HIGH) Secondary Visit Codes: [id number] CARE PLAN 30 MINUTES (20 minutes) KASI BARRIGA MD Mar 14, 2025 11:27
--- NOTE | 2025-03-14 15:25 | DVHINCON2 ---
Date Seen: Mar 14, 2025 Referring Physician MD Michi Reason for Consultation Chest pain History of Present Illness This is a 74-year-old female patient who presents to emergency room with chief complaint of back pain. The patient reports that she has been experiencing back pain for approximately three days. She describes it as sharp and located at her mid upper back region with radiation under her left scapula. She reports taking ibuprofen, which has helped. Cardiology has been consulted at this time for "chest pain". After speaking with the patient extensively, the patient denies any chest pain and states her pain is directly located in her back. Initial t welve lead electrocardiogram reveals sinus bradycardia without any significant ST segment changes. Troponin levels have been negative. Significant past medical history includes hypertension, dyslipidemia, nonalcoholic liver cirrhosis, and obesity. Past Medical History Past medical history reviewed. No other significant than mentioned above. Past Surgical History Denies any previous surgical history Family History: Diabetes mellitus G8 FATHER Hypertension G8 MOTHER Family History Family history reviewed. Social History Denies the use of tobacco, alcohol or illicit drugs. Allergies: Coded Allergies: NO KNOWN ALLERGIES (Unverified , 10/16/12) Home Meds Active Scripts Ibuprofen Micronized (Ibuprofen) 600 Mg Tab, 600 MG PO TID PRN for 10 Days, #30 TAB Prov:YOUNG MELO DO 04/08/23 Home Meds Home medications reviewed. Current Medications Current Medications Medications (Trade) Dose Ordered Sig/Kandi Route PRN Reason Start Time Stop Time Status Last Admin Sodium Chloride (Saline Lock Ns) 10 ml Q8HR IV 03/13/25 22:00 03/14/25 15:01 Docusate Sodium (Colace Capsule) 100 mg BIDPRN PRN PO FOR CONSTIPATION 03/13/25 18:45 Acetaminophen (Tylenol Tablet) 650 mg Q6HP PRN PO PAIN SCALE 1-3 OR TEMP>100.4 03/13/25 18:45 03/14/25 04:18 Acetaminophen/ Hydrocodone Bitart ([place] 5/325MG Tab) 1 tab Q4HP PRN PO MODERATE PAIN (4-6 PAIN SCALE) 03/13/25 18:45 Hold Ondansetron HCl (Zofran) 4 mg Q4HP PRN IV NAUSEA / VOMITING 03/13/25 18:45 Enoxaparin Sodium (Lovenox) 40 mg DAILY SC 03/14/25 10:00 03/14/25 09:43 Nitroglycerin (Ntrostat Sublingual) 0.4 mg Q5MINP PRN SL FOR CHEST PAIN 03/13/25 18:45 Morphine Sulfate 2 mg Q30M PRN IV FOR CHEST PAIN 03/13/25 18:45 Ketorolac Tromethamine (Toradol Injection) 15 mg Q8H PRN IV moderate pain 03/13/25 18:45 03/18/25 18:44 03/14/25 15:00 Hydralazine HCl (Apresoline Injection) 10 mg Q6HP PRN IV SBP>160 03/13/25 22:00 03/13/25 22:20 Review of Systems Constitutional: No symptom reported Ears, Nose, & Throat: No symptom reported Eyes: No symptom reported Neurological: No symptoms reported Pulmonary/Respiratory: No symptoms reported Cardiovascular: No symptom reported Gastrointestinal: No symptom reported Genitourinary: No symptom reported Musculoskeletal: Back pain Skin: No symptom reported Psychiatric: No symptom reported Endocrine: No symptom reported Hematologic/Lymphatic: No symptom reported Vital Signs Vital Signs Date Time Temp Pulse Resp B/P (MAP) Pulse Ox O2 Delivery O2 Flow Rate FiO2 03/14/25 13:00 97.2 63 18 135/81 (99) 96 97.2 03/14/25 08:11 Room Air* 0 21 Physical Exam General Appearance: Cooperative. Well-developed. Well-nourished. No acute distress. Pulmonary/Respiratory: Clear, bilateral breaths sounds. Cardiovascular/Chest: Regular rate and rhythm. Peripheral Pulses: 2+ Radial (R). 2+ Radial (L). 2+ Pedal (R). 2+ Pedal (L) Abdominal Exam: Normal bowel sounds. Ankle Exam: Negative ankle edema Lower extremities: Negative lower extremity edema Neuro/Mental Status: A/OX4, coherent. Thoughts/Psych: Normal thought pattern. Appropriate mood and affect. Good judgment and insight. Appearance: No acute distress. Skin Exam: Normal inspection. Normal color. Warm and dry. Labs/Diagnostic Data Labs Test 03/14/25 06:30 03/13/25 11:31 03/13/25 10:30 03/13/25 10:16 Range/Units White Blood Count 4.1 L 4.4-10.8 10^3/uL Red Blood Count 3.75 L 4.0-5.20 10^6/uL Hemoglobin 12.2 12.2-16.2 g/dL Hematocrit 36.0 36.0-46.0 % Mean Corpuscular Volume 96.1 80.0-100.0 fL Mean Corpuscular Hemoglobin 32.4 H 28.0-32.0 pg Mean Corpuscular Hemoglobin Concent 33.7 32.0-36.0 g/dL Red Cell Distribution Width 13.5 11.8-14.3 % Platelet Count 174 140-450 10^3/uL Mean Platelet Volume 8.5 6.9-10.8 fL Neutrophils (%) (Auto) 43.5 37.0-80.0 % Lymphocytes (%) (Auto) 39.5 10.0-50.0 % Monocytes (%) (Auto) 11.1 0.0-12.0 % Eosinophils (%) (Auto) 5.3 0.0-7.0 % Basophils (%) (Auto) 0.6 0.0-2.0 % Neutrophils # (Auto) 1.8 1.6-8.6 10 ^3/uL Lymphocytes # (Auto) 1.6 0.4-5.4 10 ^3/uL Monocytes # (Auto) 0.5 0-1.3 10 ^3/uL Eosinophils # (Auto) 0.2 0-0.8 10 ^3/uL Basophils # (Auto) 0 0-0.2 10 ^3/uL Nucleated Red Blood Cells 0.2 % Sodium Level 143 136-145 mmol/L Potassium Level 4.4 3.5-5.1 mmol/L Chloride Level 111 H 98-107 mmol/L Carbon Dioxide Level 22 20-31 mmol/L Anion Gap 10 5-15 Blood Urea Nitrogen 20 9-23 mg/dL Creatinine 1.03 H 0.550-1.02 mg/dL Glomerular Filtration Rate Calc 57 >90 mL/min BUN/Creatinine Ratio 19.4 10.0-20.0 Serum Glucose 91 74-106 mg/dL Calcium Level 9.8 8.7-10.4 mg/dL Total Bilirubin 0.6 0.2-1.0 mg/dL Aspartate Amino Transferase (AST) 49 H 13-40 U/L Alanine Aminotransferase (ALT) 23 7-40 U/L Alkaline Phosphatase 127 H 46-116 U/L Total Protein 6.3 5.7-8.2 g/dL Albumin 3.6 3.2-4.8 g/dL Troponin I High Sensitivity 3 L </=34 ng/L Lipase 45 12-53 U/L Urine Color Light-yellow Yellow Urine Clarity Clear Clear Urine pH 7.0 5.0-9.0 Urine Specific [place] 1.011 1.001-1.035 Urine Protein Negative Negative Urine Ketones Negative Negative Urine Blood Negative Negative /uL Urine Nitrite Negative Negative Urine Bilirubin Negative Negative Urine Urobilinogen Normal Negative mg/dL Urine Leukocyte Esterase Negative Negative /uL Urine RBC 1 0 - 4 /hpf Urine Microscopic WBC < 1 0-5 /HPF Urine Squamous Epithelial Cells Few <5 /hpf Urine Bacteria None seen None Seen /hpf Urine Glucose Normal Normal mg/dL Assessment Hypertensive urgency Dyslipidemia Nonalcoholic liver cirrhosis Obesity Plan/Recommendation We will continue with the following plan/recommendations (Dr. Davison): We will proceed with obtaining a transthoracic echocardiogram to evaluate cardiac function. After speaking with the patient, the patient adamantly denies any chest pain. She reports that the reason that she came to the hospital was because of back pain that she was experiencing. She reports that approximately two years ago she was diagnosed with degenerative disc disease where she was sent to physical therapy. She states that she has not experienced pain up until recently and came to the emergency room for further evaluation. Troponin levels are negative. The patient is not complaining of any cardiac symptoms. We will recommend to continue with blood pressure control. Consider further musculoskeletal workup to address back pain. In the setting of an unremarkable transthoracic echocardiogram, there is no further inpatient cardiac workup indicated at this time. Thank you for allowing us to care for this patient. Please call with any questions or concerns. Critical care time spent: 44 minutes This medical document was created using an electronic medical record system with voice recognition software and computerized dictation system. Although this document has been carefully reviewed, there might still be some phonetic and typographical errors. Occasional wrong-word or ``sound-alike substitutions may have occurred due to the inherent limitations of voice recognition software. These areas are purely typographical due to imperfections of the software programs and do not reflect any compromise in the patient's medical care. Please read the chart carefully and recognize, using context, where these substitutions have occurred. Plan discussed with: Patient NYHA Physical activity limitations: NA Date of Service: Mar 14, 2025 Billing Provider: VICTOR MANUEL SCHWARTZ Cardiology Common Codes: 13740-IQHYCDB INP/OBS CARE (High) Cardiology Consultation Codes: [id number] CONSULT <45MIN VICTOR MANUEL SCHWARTZ Mar 14, 2025 15:25
[2025-03-15 01:00] VITALS: BP 145/82; PULSE 60; RESP 16; TEMP 97.8; O2SAT 98
[2025-03-15 05:00] VITALS: BP 148/89; PULSE 57; RESP 18; TEMP 97.7; O2SAT 99
[2025-03-15 06:27] LABS: Hematocrit 35.1 % (36.0-46.0); Hemoglobin 12.0 g/dL (12.2-16.2); Mean Corpuscular Hemoglobin 33.0 pg (28.0-32.0); Mean Corpuscular Volume 96.3 fL (80.0-100.0); Nucleated Red Blood Cells % 0.1 %
[2025-03-15 06:48] LABS: Alanine Aminotransferase 27 U/L (7-40); Albumin 3.6 g/dL (3.2-4.8); Anion Gap 9 (5-15); BUN/Creatinine Ratio 24.2 (10.0-20.0); Bilirubin, Total 0.3 mg/dL (0.2-1.0); Blood Urea Nitrogen 23 mg/dL (9-23); Calcium 9.5 mg/dL (8.7-10.4); Carbon Dioxide 21 mmol/L (20-31); Potassium 4.7 mmol/L (3.5-5.1); Sodium 139 mmol/L (136-145); Total Protein 6.2 g/dL (5.7-8.2)
[2025-03-15 06:49] LABS: Alkaline Phosphatase 131 U/L (46-116); Chloride 109 mmol/L (98-107); Glucose 120 mg/dL (74-106)
[2025-03-15 08:00] VITALS: PULSE 57; RESP 17; O2SAT 97
[2025-03-15] MEDS: CHLORTHALIDONE 25 MG TAB PO SCH (08:00)
--- NOTE | 2025-03-15 08:53 | DVHPN2 ---
Subjective Feeling much better this morning with no complaints Reviewed: Care Plan, H&P, Labs, Medications, Previous Orders, Radiology, Other (Consultation) Changes from previous H/P or p: Changes Objective Vitals Vital Signs Date Time Temp Pulse Resp B/P (MAP) Pulse Ox O2 Delivery O2 Flow Rate FiO2 03/15/25 05:00 97.7 57 18 148/89 (108) 99 97.7 03/14/25 20:00 Room Air* 0 21 Intake/Output Intake and Output 03/15/25 07:00 Intake Total 1450 ml Balance 1450 ml Intake Oral 1450 ml # Voids 6 General Appearance: Alert, Oriented X3, Cooperative, No acute distress HEENT: Atraumatic Lungs: Clear to auscultation, Normal air movement Cardiovascular: Regular rate, Normal S1, Normal S2, No murmurs Neuro: Normal speech, Cranial nerves 3-12 NL Psych/Mental Status: Mental status NL, Mood NL Medications Current Medications Medications Dose Ordered Sig/Kandi Route Start Time Stop Time Status Last Admin Dose Admin Sodium Chloride 10 ml Q8HR IV 03/13/25 22:00 03/15/25 05:31 10 ML Docusate Sodium 100 mg BIDPRN PRN PO 03/13/25 18:45 Acetaminophen 650 mg Q6HP PRN PO 03/13/25 18:45 03/15/25 05:29 650 MG Acetaminophen/ Hydrocodone Bitart 1 tab Q4HP PRN PO 03/13/25 18:45 Hold Ondansetron HCl 4 mg Q4HP PRN IV 03/13/25 18:45 Enoxaparin Sodium 40 mg DAILY SC 03/14/25 10:00 03/14/25 09:43 40 MG Nitroglycerin 0.4 mg Q5MINP PRN SL 03/13/25 18:45 Morphine Sulfate 2 mg Q30M PRN IV 03/13/25 18:45 Ketorolac Tromethamine 15 mg Q8H PRN IV 03/13/25 18:45 03/18/25 18:44 03/14/25 15:00 15 MG Hydralazine HCl 10 mg Q6HP PRN IV 03/13/25 22:00 03/13/25 22:20 10 MG Chlorthalidone 25 mg DAILY@BREAKFAST PO 03/15/25 08:00 Laboratory Results Laboratory Tests 03/15/25 05:54 Chemistry Test 03/15/25 05:54 Albumin 3.6 g/dL (3.2-4.8) Calcium Level 9.5 mg/dL (8.7-10.4) Total Protein 6.2 g/dL (5.7-8.2) LFT Test 03/15/25 05:54 Alanine Aminotransferase (ALT) 27 U/L (7-40) Alkaline Phosphatase 131 U/L (46-116) H Aspartate Amino Transferase (AST) 62 U/L (13-40) H Total Bilirubin 0.3 mg/dL (0.2-1.0) Urinalysis Test 03/13/25 10:16 Urine Color Light-yellow (Yellow) Urine Clarity Clear (Clear) Urine pH 7.0 (5.0-9.0) Urine Specific [place] 1.011 (1.001-1.035) Urine Protein Negative (Negative) Urine Ketones Negative (Negative) Urine Blood Negative /uL (Negative) Urine Nitrite Negative (Negative) Urine Bilirubin Negative (Negative) Urine Urobilinogen Normal mg/dL (Negative) Urine Leukocyte Esterase Negative /uL (Negative) Urine RBC 1 /hpf (0 - 4) Urine Microscopic WBC < 1 /HPF (0-5) Urine Squamous Epithelial Cells Few /hpf (<5) Urine Bacteria None seen /hpf (None Seen) Urine Glucose Normal mg/dL (Normal) Labs and/or images reviewed: Labs reviewed by me, Image(s) reviewed by me Assessment/Plan Assessment/Plan A 74-year-old female patient; with past medical history of autoimmune hepatitis and hypothyroidism; who presented to emergency department with chest pain. # Acute chest pain; unclear etiology; negative troponin; no ischemic changes on EKG # Thoracic spine pain due to degenerative changes and chronic compression fracture; history of fall # Autoimmune hepatitis with elevated LFTs # Hypertensive kidney and heart disease # Hypothyroidism # Overweight Counseled the patient on the importance of adopting healthy lifestyle with diet and exercise in order to lose weight To resume home medications upon discharge To follow up with primary GI upon discharge Reviewed lab work and chest x-ray Cardiology evaluated the patient while admitted Echocardiogram was done but no results yet; cleared by Cardiology for discharge as initial results of echo did not indicate ischemia but there is no documentation yet The patient was provided with a copy of the thoracic spine x-rays in order to follow up with spine ortho as outpatient To follow up with Dr. Barriga next Tuesday in the discharge clinic to discuss pending echocardiogram results To follow up with Cardiology within 2 to 4 weeks Late Entry. This medical document was created using an electronic medical record system with computerized dictation system. Although this document has been carefully reviewed, there might still be some phonetic and typographical errors. These areas are purely typographical due to imperfections of the software programs, and do not reflect any compromise in the patient's medical care. Plan discussed with: Patient, Other (Nurse) My Orders Orders - KASI BARRIGA MD Procedure Category Date Status Time * Cardiology Consult CONS 03/14/25 Transmitted 12:29 Spine Thoracic 2view XY 03/15/25 Logged 08:32 Complete Blood Count LAB 03/16/25 Verified 04:00 Comprehensive LAB 03/16/25 Verified Metabolic Panel 04:00 Levothyroxine Tablet PHA 03/15/25 Logged (Synthroid Tablet) 09:00 Levothyroxine Tablet PHA 03/16/25 Logged (Synthroid Tablet) 06:00 Amlodipine Tablet PHA 03/15/25 Logged (Norvasc Tablet) 10:00 Date of Service: Mar 15, 2025 Billing Provider: KASI BARRIGA MD Common Visit Codes: [id number] INP/OBS CARE(MOD) KASI BARRIGA MD Mar 15, 2025 08:53
--- NOTE | 2025-03-15 09:11 | DVH ---
INDICATION: Back pain COMPARISON: None TECHNIQUE: 3 views of the thoracic spine were obtained. FINDINGS/IMPRESSION: The thoracic vertebral alignment is normal. Moderate multilevel degenerative disc disease of the thoracic spine. There is a chronic appearing vertebral compression fracture in the mid and lower thoracic spine ( T12 and T9)with less than 25% loss of vertebral body height. The imaged thorax and abdomen are grossly unremarkable.
[2025-03-15 09:58] VITALS: BP 144/60; PULSE 53; RESP 18; TEMP 98.2; O2SAT 98
[2025-03-15] MEDS: LEVOTHYROXINE SODIUM 25 MCG TAB PO ONE (10:25)
[2025-03-15 13:00] VITALS: BP 147/74; PULSE 57; RESP 18; TEMP 97.8; O2SAT 98
[2025-03-15] MEDS ORDERED: AML5T PO (14:35)
[2025-03-15] MEDS ORDERED: CHLO25TA2 PO (14:35)
[2025-03-15] MEDS ORDERED: LEVO25TA6 PO (14:35)
--- NOTE | 2025-03-15 14:40 | DVHDS2 ---
Discharge Summary Date of Admission Mar 13, 2025 at 18:31 Date of Discharge: Mar 15, 2025 Admitting Diagnosis Chest pain Labs/Diagnostic Data: Laboratory Results Test 03/15/25 05:54 03/13/25 11:31 03/13/25 10:30 03/13/25 10:16 White Blood Count 4.2 10^3/uL (4.4-10.8) Red Blood Count 3.65 10^6/uL (4.0-5.20) Hemoglobin 12.0 g/dL (12.2-16.2) Hematocrit 35.1 % (36.0-46.0) Mean Corpuscular Volume 96.3 fL (80.0-100.0) Mean Corpuscular Hemoglobin 33.0 pg (28.0-32.0) Mean Corpuscular Hemoglobin Concent 34.2 g/dL (32.0-36.0) Red Cell Distribution Width 13.4 % (11.8-14.3) Platelet Count 170 10^3/uL (140-450) Mean Platelet Volume 8.7 fL (6.9-10.8) Neutrophils (%) (Auto) 38.5 % (37.0-80.0) Lymphocytes (%) (Auto) 44.6 % (10.0-50.0) Monocytes (%) (Auto) 11.2 % (0.0-12.0) Eosinophils (%) (Auto) 4.8 % (0.0-7.0) Basophils (%) (Auto) 0.9 % (0.0-2.0) Neutrophils # (Auto) 1.6 10 ^3/uL (1.6-8.6) Lymphocytes # (Auto) 1.9 10 ^3/uL (0.4-5.4) Monocytes # (Auto) 0.5 10 ^3/uL (0-1.3) Eosinophils # (Auto) 0.2 10 ^3/uL (0-0.8) Basophils # (Auto) 0 10 ^3/uL (0-0.2) Nucleated Red Blood Cells 0.1 % Sodium Level 139 mmol/L (136-145) Potassium Level 4.7 mmol/L (3.5-5.1) Chloride Level 109 mmol/L (98-107) Carbon Dioxide Level 21 mmol/L (20-31) Anion Gap 9 (5-15) Blood Urea Nitrogen 23 mg/dL (9-23) Creatinine 0.95 mg/dL (0.550-1.02) Glomerular Filtration Rate Calc 63 mL/min (>90) BUN/Creatinine Ratio 24.2 (10.0-20.0) Serum Glucose 120 mg/dL (74-106) Calcium Level 9.5 mg/dL (8.7-10.4) Total Bilirubin 0.3 mg/dL (0.2-1.0) Aspartate Amino Transferase (AST) 62 U/L (13-40) Alanine Aminotransferase (ALT) 27 U/L (7-40) Alkaline Phosphatase 131 U/L (46-116) Total Protein 6.2 g/dL (5.7-8.2) Albumin 3.6 g/dL (3.2-4.8) Troponin I High Sensitivity 3 ng/L (</=34) Lipase 45 U/L (12-53) Urine Color Light-yellow (Yellow) Urine Clarity Clear (Clear) Urine pH 7.0 (5.0-9.0) Urine Specific [place] 1.011 (1.001-1.035) Urine Protein Negative (Negative) Urine Ketones Negative (Negative) Urine Blood Negative /uL (Negative) Urine Nitrite Negative (Negative) Urine Bilirubin Negative (Negative) Urine Urobilinogen Normal mg/dL (Negative) Urine Leukocyte Esterase Negative /uL (Negative) Urine RBC 1 /hpf (0 - 4) Urine Microscopic WBC < 1 /HPF (0-5) Urine Squamous Epithelial Cells Few /hpf (<5) Urine Bacteria None seen /hpf (None Seen) Urine Glucose Normal mg/dL (Normal) Other Laboratory Tests 03/15/25 05:54 Brief Hx & Hospital Course: A 74-year-old female patient; with past medical history of autoimmune hepatitis and hypothyroidism; who presented to emergency department with chest pain. # Acute chest pain; unclear etiology; negative troponin; no ischemic changes on EKG; most likely related to degenerative changes and chronic compression fracture of thoracic spine # Thoracic spine pain due to degenerative changes and chronic compression fracture; history of fall # Autoimmune hepatitis with elevated LFTs # Hypertensive kidney and heart disease # Hypothyroidism # Overweight Counseled the patient on the importance of adopting healthy lifestyle with diet and exercise in order to lose weight To resume home medications upon discharge To follow up with primary GI upon discharge Reviewed lab work and chest x-ray Cardiology evaluated the patient while admitted Echocardiogram was done but no results yet; cleared by Cardiology for discharge as initial results of echo did not indicate ischemia but there is no documentation yet The patient was provided with a copy of the thoracic spine x-rays in order to follow up with spine ortho as outpatient To follow up with Dr. Barriga next Tuesday in the discharge clinic to discuss pending echocardiogram results To follow up with Cardiology within 2 to 4 weeks Prescribed amlodipine upon discharge Late Entry. This medical document was created using an electronic medical record system with computerized dictation system. Although this document has been carefully reviewed, there might still be some phonetic and typographical errors. These areas are purely typographical due to imperfections of the software programs, and do not reflect any compromise in the patient's medical care. Consults/Reason for consult Cardiology for chest pain Condition at Discharge: Stable Final Diagnosis/Problems List # Acute chest pain; unclear etiology; negative troponin; no ischemic changes on EKG; most likely related to degenerative thoracic spine disease Rest of diagnoses as above Discharge Disposition: Home Discharge Instruct/Medications Diet: Cardiac 2g Na,low cholest Activity: No Restrictions, As Tolerated Follow Up/Referral: Dr. Barriga/Dr. Louis at 09:15 am on Tuesday03/18/2025 at [place] [id number]//Spine Ortho within 2 to 4 weeks Medications: Amlodipine; to continue home medications Scheduled Amlodipine Besylate (Norvasc Tablet), 5 MG PO DAILY Chlorthalidone (Chlorthalidone), 25 MG PO DAILY@BREAKFAST Levothyroxine Sodium (Levothyroxine Sodium), 25 MCG PO QAM@0600 Discontinued Medications Ibuprofen Micronized (Ibuprofen), 600 MG PO TID PRN Discharge Statement: "Patient was advised to return to the ER or call 911 if any headaches, dizziness, shortness of breath, chest pain, abdominal pain, bleeding, fevers, or worsening of medical condition. Patient was counseled about treatment plan, medications, possible side effects, patientverbalized understanding. All questions were answered to the best of my ability. This discharge took greater then 30 minutes in planning, reviewing documentation, counseling the patient, and discussing with other team members." Date of Service: Mar 15, 2025 Billing Provider: KASI BARRIGA MD Common Visit Codes: [id number] DISCH DAY >30min KASI BARRIGA MD Mar 15, 2025 14:40
[2025-03-15 16:29] VITALS: BP 137/73; PULSE 70; RESP 16; TEMP 36.6; O2SAT 99
[2025-03-16] MEDS ORDERED: LEVOTHYROXINE SODIUM 25 MCG TAB PO SCH (06:00)
--- NOTE | 2025-03-16 13:06 | DVHSR ---
APPROVED REPORT EXAM: LIMITED Two-dimensional and M-mode echocardiogram with Doppler and color Doppler. Blood Pressure: 152/88 mmHg INDICATION Chest Pain R/O ACS RISK FACTORS Height: 5' 1", Weight: 142 DIMENSIONS LVDd4.3 (3.8-5.7cm)LA (2D)3.4 (1.9-4.0cm)Aortic Root3.0 (2.0-3.7cm) LVDs3.1 (2.5-4.0cm)LA (MM) (1.9-4.0cm)Aortic Cusp Exc1.6 (1.5-2.0cm) EF (%) 55.0 (55-70%)Rt. Atrium3.5 (1.9-4.0cm)Asc. Aorta cm IVSd0.9 (0.7-1.1cm)RV (D) (1.8-2.4cm) PWd0.9 (0.7-1.1cm) Mitral Valve MitralMitral Stenosis E wave1.00m/sMV Mean GR.mmHg A wave0.80m/sMV Peak GR.mmHg E/A ratio1.32D MVAcm2 Aortic Valve Aortic ValveAortic Stenosis V11.00m/Rina Mean GR.3mmHg V21.30m/Rina Peak GR.7mmHg LVOT Diameter2.0 (1.8-2.4cm)Doppler AVA2.42cm2 AI P 1/2 [id number] Pulmonic Valve V20.60m/s Tricuspid Valve TR Velocity2.20m/s [id number] Other Information Quality : Technically LimitedRhythm : Technically limited study due to body habitus, patient with breast implants. Conclusion MILD LVH AND MILD LV DIASTOLIC DYSFUNCTION LV EF IS 65% AND IS NORMAL AORTIC SCLEROSIS MILD AORTIC REGURG NORMAL MV,TV AND PV NO EFFUSION NORMAL RV FUNCTION
== END 2025-03-15 17:00 | disposition home or self-care (01) | DRG 305 ==
LOC: ER 09:49 → OVERFLOW 18:31 → WEST WING 22:39
PROVIDERS: ADMIT Internal Medicine; ATTEND Internal Medicine
DX: I16.0 Hypertensive urgency (principal); K74.60 Unspecified cirrhosis of liver; K75.4 Autoimmune hepatitis; N18.9 Chronic kidney disease, unspecified; I13.10 Hypertensive heart and chronic kidney disease without heart failure, with stage 1 through stage 4 chronic kidney disease, or unspecified chronic kidney disease; E66.9 Obesity, unspecified; E03.9 Hypothyroidism, unspecified; E78.5 Hyperlipidemia, unspecified; M54.6 Pain in thoracic spine; Z68.26 Body mass index [BMI] 26.0-26.9, adult; Z91.81 History of falling; Z83.3 Family history of diabetes mellitus; Z82.49 Family history of ischemic heart disease and other diseases of the circulatory system
CPT/HCPCS: 36415; 71045; 72070; 80053; 81001; 83690; 84484; 85025; 93306; 96374; 99291; G0378; J1885; J2405